=== PATIENT | female | born 1980 | race Caucasian/White ===

== ENCOUNTER 2017-03-17 12:00 | Emergency (ER) | payer MEDICAID ==
[~2017-03-17 12:00] MED LIST: IBUP-238 PO; LORT5TAB PO; Z.0.NO CURRENT MEDS
[2017-03-17 12:03] VITALS: BP 190/120; PULSE 112; RESP 24; TEMP 97.7; O2SAT 100
--- NOTE | 2017-03-17 12:14 | PD ---
Physical Exam Date Seen by Provider: Mar 17, 2017 Time Seen by Provider: 12:12 Narrative 36 yr old female here with dental pain. She has a dentist appointment on Sunday at 10am. Her pain is in the left upper jaw. Her bp is elevated. She only reports hypertension during . She has no facial swelling. She has no other complaints. She wants something for pain. Ibuprofen is not working. She is awaiting bed placement. Data Data Last Documented VS Vital Signs Date Time Temp Pulse Resp B/P Pulse Ox O2 Delivery O2 Flow Rate FiO2 03/17/17 12:03 97.7 112 24 190/120 100 Room Air [facility] Medical Record Reviewed: Yes Supervised Visit with KATELYN: No Sri Rodas Mar 17, 2017 12:14
--- NOTE | 2017-03-17 12:34 | PD ---
HPI . left upper tooth pain Chief Complaint: Oral / Dental Pain or Problem Time Seen by Provider: 12:33 Travel History International Travel<30 days: No Contact w/Intl Traveler<30days: No Traveled to known affect area: No History of Present Illness HPI This is a 36 yr old patient, whom I initially encountered in triage. She has left upper tooth pain that has been present for some time. She does have a dentist appointment on Sunday. Her bp is elevated and she reports HTN during . She has no other complaints. I recheck her bp 170/100. She has been checking her bp at home and it runs about 130/90. In regards to her tooth she recently had dental treatment on this tooth in October. She was told she may need a root canal. She reports 10/10 pain in her number #15. She has no other complaints. PFSH Past Medical History Diminished Hearing: No Genitourinary: Yes (BENIGN CYSTS TO CERVIX, EMDOMETRIOSIS) ?: Not LMP: 03/12/17 : 1 Past Surgical History Other Surgery: Yes (WISDOM TEETH) Social History Alcohol Use: Yes (1 BEER A DAY) Tobacco Use: Yes (3/4 PPD) Substance Use: No Allergies-Medications (Allergen,Severity, Reaction): Coded Allergies: No Known Allergies (Verified , 01/30/11) Reported Meds & Prescriptions Reported Meds & Active Scripts Active Tramadol (Tramadol HCl) 50 Mg Tab 50 Mg PO Q8H PRN Review of Systems General / Constitutional: No: Fever Eyes: No: Visual changes HENT: Positive: Dental Difficulties, No: Headaches Cardiovascular: No: Chest Pain or Discomfort Respiratory: No: Shortness of Breath Gastrointestinal: No: Abdominal Pain Genitourinary: No: Dysuria Musculoskeletal: No: Pain Skin: No Rash Neurologic: No: Weakness Psychiatric: No: Depression Endocrine: No: Polydipsia Hematologic/Lymphatic: No: Easy Bruising Physical Exam Narrative GENERAL: AAO x 3, no acute distress, Well-nourished, well-developed patient. SKIN: Warm and dry. No visible rashes or bruising. no facial edema HEAD: Normocephalic and atraumatic. EYES: No scleral icterus. No injection or drainage. ENT: No nasal drainage noted. Mucous membranes pink. Airway patent. no oropharynx abnormality. no fluid collection near or at gumline. no oral abscess. tenderness to touch on #15 NECK: Supple, trachea midline. No JVD. CARDIOVASCULAR: Regular rate and rhythm without murmurs, gallops, or rubs. RESPIRATORY: Breath sounds equal bilaterally. No accessory muscle use. No rhonchi or rales. GASTROINTESTINAL: visual inspection normal EXTREMITIES: No cyanosis or edema. BACK: No obvious deformity. NEURO: CN II-12 intact, PSYCH: AAO x 3, normal affect. Data Data Last Documented VS Vital Signs Date Time Temp Pulse Resp B/P Pulse Ox O2 Delivery O2 Flow Rate FiO2 03/17/17 12:44 170/100 03/17/17 12:03 97.7 112 24 100 Room Air Orders Tramadol (Ultram) (03/17/17 12:45) [facility] Medical Decision Making Medical Screen Exam Complete: Yes Emergency Medical Condition: Yes Medical Record Reviewed: Yes Differential Diagnosis dentalgia, cavity of tooth, less likely oral abscess Narrative Course 36 yr old female here with tooth pain. Exam is fairly unremarkable but patient in discomfort and in pain when #15 touched. Tramadol here in ED. Tramadol at home. F/u with dentist. discussed bp; advised outpatient f/u. Patient thanked me for her care Diagnosis Primary Impression: Dentalgia Additional Impression: Elevated blood pressure reading without diagnosis of hypertension Patient Instructions: General Instructions Additional Instructions: Please return to emergency department if your symptoms return or worsen. Follow up with your primary care provider. Take medications as prescribed. Follow-up with a dentist as soon as possible. Do not mix tramadol with alcohol. Please follow-up with your primary care provider regarding her elevated blood pressure. This is very important. Med/Other Pt SpecificInfo: Prescription(s) given Scripts Tramadol 50 Mg Tab50 Mg PO Q8H PRN (PAIN) #8 TAB Ref 0 Prov:Rosette Hopper MD 03/17/17 Disposition: 01 DISCHARGE HOME Condition: Stable Sri Rodas Mar 17, 2017 12:34
[2017-03-17] MEDS ORDERED: TRAM50TA PO (12:43)
[2017-03-17 12:44] VITALS: BP 170/100
[2017-03-17] MEDS ORDERED: traMADol HCL 50 MG TAB PO ONE (12:45)
== END 2017-03-17 13:09 | disposition home or self-care (01) ==
LOC: NEPD 12:00
DX: K08.89 Other specified disorders of teeth and supporting structures (principal); R03.0 Elevated blood-pressure reading, without diagnosis of hypertension; F17.200 Nicotine dependence, unspecified, uncomplicated
CPT/HCPCS: 99283